=== PATIENT | female | born 2000 | race Caucasian/White ===

== ENCOUNTER 2021-01-11 10:19 | Observation (INO) | payer OTHER, MEDICAID ==
[~2021-01-11 10:19] MED LIST: IBUP-2030 PO; PNV1TABL76 MT
== END 2021-01-11 13:05 | disposition home or self-care (01) ==
LOC: 8EST NSY 10:19 → 8 EST A/PP 10:51
PROVIDERS: ADMIT Obstetrics & Gynecology; ATTEND Obstetrics & Gynecology
DX: O46.92 Antepartum hemorrhage, unspecified, second trimester (principal); Z3A.23 23 weeks gestation of pregnancy
CPT/HCPCS: 59025; 76805; G0378; 99281

== ENCOUNTER 2021-04-27 08:17 | Inpatient (IN) | payer OTHER ==
[~2021-04-27] VITALS: Ht 154.9 cm; Wt 68.0 kg
[2021-04-27] MEDS ORDERED: LACTATED RINGERS 1,000 ML IV SCH (09:30)
[2021-04-27] MEDS ORDERED: MINERAL OIL 30ML BOTTLE PO ONE (09:30)
[2021-04-27] MEDS ORDERED: LIDOCAINE HCL 1% 20ML VIAL (Pyxis) INJ INFIL SCH (09:30)
[2021-04-27] MEDS ORDERED: BUTORPHANOL TARTRATE 2 MG/ML VIAL IV PRN (09:30)
[2021-04-27] MEDS ORDERED: DEXT 5%/LR + PITOCIN 20UNITS/L 1,000 ML IV SCH ×2 (09:30→12:00)
[2021-04-27] MEDS ORDERED: CARBOPROST TROMETHAMINE 250 MCG/ML AMPUL IM PRN (09:30)
[2021-04-27] MEDS ORDERED: NALOXONE HCL 0.4 MG/ML 1ML VIAL IM PRN (09:30)
[2021-04-27] MEDS ORDERED: METHYLERGONOVINE MALEATE 0.2 MG/ML IM PRN ×2 (09:30→12:00)
[2021-04-27 10:33] LABS: CLARITY URINE CLOUDY (CLEAR); COLOR URINE YELLOW (YELLOW); KETONES URINE TRACE (NEGATIVE); LEUKOCYTE ESTERASE URINE 2+ (NEGATIVE); NITRITE URINE NEGATIVE (NEGATIVE); OCCULT BLOOD URINE 2+ (NEGATIVE); PROTEIN URINE NEGATIVE (NEGATIVE); SPECIFIC GRAVITY URINE 1.024 (1.005-1.030)
[2021-04-27 10:39] LABS: BASOPHILS % 0.2 % (0.0-2.0); EOSINOPHILS % 0.5 % (0.0-5.0); HEMATOCRIT. 34.8 % (36.0-48.0); HEMOGLOBIN. 11.3 g/dL (12.0-16.0); MEAN CORPUSCULAR HEMOGLOBIN 26.9 pg (28.0-32.0); MEAN CORPUSCULAR VOLUME 82.9 fL (81.0-99.0); MEAN PLATELET VOLUME 9.7 fl (7.4-10.4); MONOCYTES % 6.4 % (2.0-8.0); NEUTROPHILS % 73.9 % (40.0-76.0); PLATELET 177 x1000/uL (130-400); RED BLOOD CELL COUNT 4.19 mill/uL (4.2-5.4); RED CELL DISTRIBUTION WIDTH 13.2 % (11.6-14.6)
[2021-04-27 11:03] LABS: *AMPHETAMINES SCREEN URINE NEGATIVE (NEGATIVE); *BARBITURATES SCREEN URINE NEGATIVE (NEGATIVE); *BENZODIAZEPINES SCREEN URINE NEGATIVE (NEGATIVE); *COCAINE SCREEN URINE NEGATIVE (NEGATIVE); METHADONE URINE SCREEN NEGATIVE (NEGATIVE); OPIATES URINE SCREEN NEGATIVE (NEGATIVE)
[2021-04-27 11:04] LABS: CANNABINOID URINE SCREEN NEGATIVE (NEGATIVE); PHENCYCLIDINE URINE SCREEN NEGATIVE (NEGATIVE)
[2021-04-27 11:05] LABS: INR 0.9; PARTIAL THROMBOPLASTIN TIME 24.4 sec (23.4-31.0); PROTHROMBIN TIME 9.7 sec (9.6-11.0)
[2021-04-27 11:28] LABS: HEPATITIS B SURFACE ANTIGEN NEGATIVE
[2021-04-27] MEDS ORDERED: IBUPROFEN 400MG TABLET PO PRN (12:00)
[2021-04-27] MEDS ORDERED: RHO(D) IMMUNE GLOBULIN 300 MCG/SYR IM PRN (12:00)
[2021-04-27] MEDS ORDERED: LANOLIN OINT 7GM TUBE TOP PRN (12:00)
[2021-04-27] MEDS: IBUPROFEN 800MG TABLET PO PRN ×2 (14:12→20:42)
[2021-04-27 14:20] VITALS: BP 102/64
[2021-04-27 16:25] VITALS: BP 103/63
[2021-04-27 20:00] VITALS: BP 105/54
[2021-04-28 04:00] VITALS: BP 99/54
[2021-04-28 07:32] LABS: BASOPHILS % 0.2 % (0.0-2.0); EOSINOPHILS % 0.4 % (0.0-5.0); HEMATOCRIT. 24.2 % (36.0-48.0); HEMOGLOBIN. 8.1 g/dL (12.0-16.0); LYMPHOCYTES % 24.2 % (20.0-50.0); MEAN CORPUSCULAR HEMOGLOBIN 27.4 pg (28.0-32.0); MEAN CORPUSCULAR VOLUME 82.1 fL (81.0-99.0); MEAN PLATELET VOLUME 9.3 fl (7.4-10.4); MONOCYTES % 6.1 % (2.0-8.0); NEUTROPHILS % 69.1 % (40.0-76.0); PLATELET 151 x1000/uL (130-400); RED BLOOD CELL COUNT 2.95 mill/uL (4.2-5.4); RED CELL DISTRIBUTION WIDTH 13.1 % (11.6-14.6)
[2021-04-28] MEDS ORDERED: PRENATAL VIT/FE FUMARATE/FA TABLET PO SCH (09:00)
[2021-04-28 14:29] VITALS: BP 99/54
[2021-04-28] MEDS: IBUPROFEN 800MG TABLET PO PRN (14:29)
== END 2021-04-28 14:45 | disposition home or self-care (01) | DRG 560 ==
LOC: 8 EST LDRP 08:17 → OBSVTOIN 08:17 → 8EST 21:46
PROVIDERS: ADMIT Obstetrics & Gynecology; ATTEND Obstetrics & Gynecology
PROC: 10E0XZZ Delivery of Products of Conception, External Approach (ICD-10-PCS; principal; 2021-04-27)
DX: O80 Encounter for full-term uncomplicated delivery (principal); Z37.0 Single live birth; Z20.822 Contact with and (suspected) exposure to COVID-19; Z79.1 Long term (current) use of non-steroidal anti-inflammatories (NSAID); Z3A.00 Weeks of gestation of pregnancy not specified
CPT/HCPCS: 36415; 80305; 81003; 85025; 86592; 86703; 86762; 86850; 86900; 87077; 87340; 87426; 99281; J0595; J2590; J3490; J7120